=== PATIENT | female | born 1995 | race African-American/Black ===

== ENCOUNTER 2018-05-25 16:26 | Emergency (ER) | payer OTHER ==
[2018-05-25 17:20] LABS: ABSOLUTE BASOPHIL COUNT 0 /CUMM (0.0-0.2); ABSOLUTE EOSINOPHIL COUNT 0 /CUMM (0.0-0.7); ABSOLUTE GRANULOCYTE CT 8.9 /CUMM (1.4-6.5); ABSOLUTE LYMPH COUNT 0.6 /CUMM (1.2-3.4); ABSOLUTE MONOCYTE COUNT 0.1 /CUMM (0.10-0.60); BASOPHIL % 0 % (0.0-2.0); EOSINOPHIL % 0 % (0-5); HEMATOCRIT 47.2 % (37-47); MEAN CORPUSCULAR HGB 27.1 PG (27.0-31.0); MEAN CORPUSCULAR HGB CONC 32.3 G/DL (33.0-37.0); MEAN PLATELET VOLUME 9.5 FL (7.4-10.4); PLATELET COUNT 323 /CUMM (130-400); RED BLOOD CELL CT 5.62 /CUMM (4.20-5.40); WHITE BLOOD CELL COUNT 9.5 /CUMM (4.8-10.8)
[2018-05-25 17:33] LABS: GRANULOCYTE % 93.3 % (42.2-75.2)
--- NOTE | 2018-05-25 21:12 | ED GENERAL ADULT ---
History of Present Illness General Chief Complaint: Allergy Symptoms Stated Complaint: ?ALLERGIC REACTION (SEEN MD TODAY, NO RELIEF) Source: patient Exam Limitations: no limitations Vital Signs & Intake/Output Vital Signs & Intake/Output Vital Signs Date Time Temp Pulse Resp B/P B/P Pulse O2 O2 Flow FiO2 Mean Ox Delivery Rate 05/25 2257 97.4 66 16 120/68 99 Room Air 05/25 1925 98.0 90 18 115/71 99 Room Air 05/25 1736 98 Room Air 05/25 1733 97.3 74 18 122/66 99 Room Air 05/25 1648 98.6 125 15 166/94 96 Room Air Room Air ED Intake and Output 05/26 0000 05/25 1200 Intake Total 100 Output Total Balance 100 Intake, IV 100 Allergies Coded Allergies: No Known Allergies (05/25/18) Triage Note: PT TO ED FOR C/C OF ALLERGIC REACTION TO UNKNOWN SUBSTANCE SINCE LAST NIGHT AND WORSE TODAY. REPORTS SOME SOB. 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 Triage Nurses Notes Reviewed? yes Onset: Abrupt Duration: day(s): (1), constant Timing: recent history Injury Environment: home : No Patient currently breastfeeds: No HPI: 23-year-old female comes into the emergency room with complaints of rash and some chest tightness. Patient reports that the rash began last night. It is diffuse. Itching. She woke up this morning and had some associated chest tightness. She saw her primary care doctor who prescribed prednisone and hydroxyzine. She denies any tongue swelling. She has some mild shortness of breath going on earlier. She came into the ER for further evaluation. She denies any fever. She is on control. She denies any new medications. She denies any new skin care products or new foods. Past History Travel History Traveled to [place] past 21 day No Medical History Any Pertinent Medical History? see below for history Neurological: NONE EENT: NONE Cardiovascular: NONE Respiratory: NONE Gastrointestinal: NONE Hepatic: NONE Renal: NONE Musculoskeletal: NONE Psychiatric: NONE Endocrine: NONE Blood Disorders: NONE Cancer(s): NONE Surgical History Surgical History: non-contributory Psychosocial History What is your primary language Croatian Tobacco Use: Never used Family History Hx Contributory? No Review of Systems Review of Systems Constitutional: Reports: no symptoms. EENTM: Reports: no symptoms. Respiratory: Reports: see HPI. Cardiovascular: Reports: see HPI. GI: Reports: no symptoms. Genitourinary: Reports: no symptoms. Musculoskeletal: Reports: no symptoms. Skin: Reports: see HPI. Neurological/Psychological: Reports: no symptoms. Hematologic/Endocrine: Reports: no symptoms. Immunologic/Allergic: Reports: see HPI. All Other Systems: Reviewed and Negative Physical Exam Physical Exam General Appearance: well developed/nourished, no apparent distress, alert, awake Head: atraumatic, normal appearance Eyes: Bilateral: normal appearance. Ears, Nose, Throat: hearing grossly normal Neck: normal inspection Respiratory: normal breath sounds, no respiratory distress Cardiovascular: regular rate/rhythm, tachycardia Back: normal inspection Extremities: normal inspection Neurologic/Psych: awake, alert, oriented x 3 Skin: intact, rash, generalized urticarial rash Core Measures ACS in differential dx? No CVA/TIA Diagnosis: No Sepsis Present: No Sepsis Focused Exam Completed? No Progress Differential Diagnoses I considered the following diagnoses in my evaluation of the patient: Allergic reaction, anaphylaxis, PE, Plan of Care: Orders Procedure Date/time Status EKG 05/25 2231 Active Add-on Test (ER Only) 05/25 2015 Active Add-on Test (ER Only) 05/25 1736 Active TROPONIN LEVEL 05/25 171 Complete HUMAN BETA HCG SCREEN 05/25 171 Complete D-DIMER 05/25 165 Complete COMPREHENSIVE METABOLIC PANEL 05/25 165 Complete CBC WITHOUT DIFFERENTIAL 05/25 165 Complete EKG 05/25 165 Active Laboratory Tests 05/25/18 1710: Anion Gap 14, Estimated GFR > 60, BUN/Creatinine Ratio 11.7, Glucose 170 H, Calcium 9.7, Total Bilirubin 0.5, AST 32, ALT 20, Alkaline Phosphatase 39, Troponin I < 0.01, Total Protein 7.2, Albumin 4.4, Globulin 2.8, Albumin/ Globulin Ratio 1.6, Total Beta HCG NEGATIVE, D-Dimer High Sensitivty 2918 H, CBC w Diff NO MAN DIFF REQ, RBC 5.62 H, MCV 84.0, MCH 27.1, MCHC 32.3 L, RDW 14.0, MPV 9.5, Gran % 93.3 H, Lymphocytes % 5.8 L, Monocytes % 0.9 L, Eosinophils % 0, Basophils % 0, Absolute Granulocytes 8.9 H, Absolute Lymphocytes 0.6 L, Absolute Monocytes 0.1, Absolute Eosinophils 0, Absolute Basophils 0 Initial ED EKG: normal sinus rhythm, rate (104), nonspecific ST T wave chg Repeat EKG: changed (rate improved) Departure Departure Disposition: HOME OR SELF CARE Condition: Stable Clinical Impression Primary Impression: Allergic reaction Referrals: Ya Ridley MD (PCP/Family) Additional Instructions: Continue to take the prednisone that was prescribed to home. Follow-up with your primary care doctor. Return if any other concerns. Please go over all results of today's visit with your primary care doctor. Contact your primary care doctor to let them know you were here in the emergency room. There may be nonspecific findings which may not be related to your visit today here in the emergency room but may require further evaluation and chronic monitoring by your primary care doctor. If you had a laceration today the chance of foreign body always remains. You should follow-up with your primary care doctor for recheck in 3-5 days for a wound check. If you had an x-ray done there is a chance that a fracture could have been missed on initial read and you should follow-up with your primary care doctor for repeat x-rays if symptoms persist. If your blood pressure was elevated here in the emergency room please have rechecked by [facility] primary care doctor within the next 48. If you were prescribed a narcotic here in the emergency room or any type of controlled substances you're not allowed to drive while taking this medication or operate any type of heavy machinery. Narcotics can make you feel lightheaded dizziness nausea and can cause constipation. You may need to order picker a stool softener. Thank you for choosing [facility] emergency room. Please return to the emergency room immediately if you have any other concerns worsening of symptoms. Departure Forms: Customer Survey General Discharge Information Comments 05/26/2018 12:42:20 AM Patient was tachycardic and short of breath. All symptoms when along with urticarial rash of d-dimer was sent off because the patient cannot be perc negative. Troponin was sent for signs of right heart strain. D-dimer was positive but CT angios showed no blood clots. After IV medications her rash completely resolved and she felt significantly better. The chest tightness is likely related to the reaction that she experienced. She looks well upon reevaluation. Her heart rate improved. Case was discussed with Dr. Swift. Discharge with follow-up with PCP. Continue the prednisone that was prescribed. Critical Care Note Critical Care Note Critical Care Time: 30-74 min (35)
--- NOTE | 2018-05-25 21:15 | CT SCAN REPORT ---
EXAMINATION: CTA CHEST PE STUDY CLINICAL INFORMATION: SOB, ELEVATED D DIMER COMPARISON: No pertinent prior studies are available for comparison. TECHNIQUE: Prior to contrast administration, noncontrast localization images were obtained. After the administration of 95 ml of Optiray 320 IV contrast, contiguous thin slice helical images were obtained through the thorax. Reformatted MIP images in the coronal and sagittal planes were obtained at the acquisition workstation. DLP: 167 mGy-cm. FINDINGS: The bolus timing on this study was acceptable for visualization of the pulmonary arterial tree. There are no intraluminal pulmonary arterial filling defects present to suggest pulmonary embolism. The lungs are clear. No abnormal pulmonary nodules or masses are appreciated. No significant hilar or mediastinal adenopathy. There is no evidence of pleural effusion or pneumothorax. The heart is normal in size. No evidence of ventricular septal bowing or right heart strain. The mediastinum and great vessels are normal. There is no pericardial effusion or pericardial thickening. Limited evaluation of the upper abdominal viscera is unremarkable. IMPRESSION: No evidence for pulmonary emboli. No focal airspace disease. VTE: Negative
[2018-05-25 22:57] VITALS: BP 120/68
== END 2018-05-25 22:57 ==
LOC: ERH 16:26
PROVIDERS: Physician Assistant Medical
DX: T78.40XA Allergy, unspecified, initial encounter (principal); R07.89 Other chest pain; R21 Rash and other nonspecific skin eruption; R06.02 Shortness of breath
CPT/HCPCS: 93005; 93010; 96374; 96375; J1200; J2920